=== PATIENT | male | born 1960 | race Caucasian/White ===

== ENCOUNTER → 2021-02-01 | Outpatient (CLI) | payer OTHER ==
[2016-09-27 09:57] VITALS: BP 171/76
[~2021-02-01] MED LIST: BACL10TA PO; DULO30CA2 PO; HYDR-2761 PO; HYDR-2765 PO; IBUP-1027 PO; MELO15TA23 PO
--- NOTE | 2021-02-01 12:05 | CARD ---
MR#: [id number] Date of Study: 02/01/2021 Ordering Physician: NATALEE JEAN BAPTISTE, Referring Physician: NATALEE JEAN BAPTISTE, Tech: Perlita Jiménez MARCIANO APPROVED REPORT EXAM: Two-dimensional and M-mode echocardiogram with Doppler and color Doppler. Other Information Quality : Good INDICATION Ventricular Septal Defect-Closure in 2011 2D DIMENSIONS RVDd3.1 (2.9-3.5cm)Left Atrium(2D)3.9 (1.6-4.0cm) IVSd1.1 (0.7-1.1cm)Aortic Root(2D)3.0 (2.0-3.7cm) LVDd4.9 (3.9-5.9cm)LVOT Diameter2.2 (1.8-2.4cm) PWd1.1 (0.7-1.1cm)LVDs2.7 (2.5-4.0cm) FS (%) 30.0 %SV87.3 ml LVEF(%)60.0 (>50%) Aortic Valve AoV Peak Ghassan.156.4cm/sAoV VTI34.3cm AO Peak GR.9.8mmHgLVOT Peak Ghassan.98.4cm/s LVOT VTI 20.05cmAO Mean GR.5mmHg ROME (VMAX)1.98ct2ZZK (VTI)2.30cm2 AI P 1/2 Vtyj840pr Mitral Valve MV E Utxncmxm21.6cm/sMV DECEL [id number] MV A Texjowvx75.5cm/sMV [id number] E/A Ratio1.0MVA (PHT)2.80cm2 TDI E/Lateral E'5.1E/Medial E'10.1 Tricuspid Valve TR P. Lgaaovbc422ba/sRAP BTSUQKWX8cvBp TR Peak Gr.94qtCrHVON06geUl Pulmonary Vein S1 Qfzmzxuo55.3cm/sD2 Juixwwmk57.5cm/s LEFT VENTRICLE The left ventricle is normal size. There is normal left ventricular wall thickness. The left ventricu lar systolic function is normal. The Ejection Fraction is 55-60%. There is normal LV segmental wall m otion. Transmitral Doppler flow pattern is Grade II-pseudonormal filling dynamics. RIGHT VENTRICLE The right ventricle is normal size. The right ventricular systolic function is normal. ATRIA The left atrium size is normal. The right atrium size is normal. The interatrial septum is intact wit h no evidence for an atrial septal defect or patent foramen ovale as noted on 2-D or Doppler imaging. AORTIC VALVE The aortic valve is normal in structure and function. Doppler and Color Flow revealed mild aortic reg urgitation. There is no significant aortic valvular stenosis. MITRAL VALVE The mitral valve is normal in structure and function. There is no evidence of mitral valve prolapse. There is no mitral valve stenosis. Doppler and Color-flow revealed trace mitral regurgitation. TRICUSPID VALVE The tricuspid valve is normal in structure and function. Doppler and Color Flow revealed trace tricus pid regurgitation. The PA pressure was estimated at 19 mmHg. There is no tricuspid valve stenosis. PULMONIC VALVE The pulmonary valve is normal in structure and function. Doppler and Color Flow revealed no pulmonic valvular regurgitation. There is no pulmonic valvular stenosis. GREAT VESSELS The aortic root is normal in size. The ascending aorta is not well seen. The IVC is normal in size an d collapses >50% with inspiration. PERICARDIAL EFFUSION There is no evidence of significant pericardial effusion. Critical Notification Critical Value: No <Conclusion> The left ventricular systolic function is normal. The Ejection Fraction is 55-60%. There is normal LV segmental wall motion. Mild aortic regurgitation. Trace mitral regurgitation. Trace tricuspid regurgitation. The PA pressure was estimated at 19 mmHg. There is no evidence of significant pericardial effusion. Signed by : Mathew Robledo, Electronically Approved : 02/01/2021 12:05:05
== END ==
LOC: ECHO 08:43
PROVIDERS: ATTEND Internal Medicine Cardiovascular Disease
DX: I35.1 Nonrheumatic aortic (valve) insufficiency (principal); Q21.0 Ventricular septal defect
CPT/HCPCS: 93306